=== PATIENT | male | born 1955 | race Caucasian/White ===

== ENCOUNTER 2021-04-23 00:49 | Day surgery (SDC) | payer BC, SELFPAY ==
[2021-04-07 14:12] VITALS: BMI 36.3
--- NOTE | 2021-04-22 09:45 | P.PNAN_ITS ---
Anes - Initial Pre Proc Eval Procedure: Operation Date: 04/23/21 09:15 Proposed Procedures p Screening Colonoscopy - Raymond Nation MD Date/Time: 04/22/21 09:45 Surgeon: Raymond Nation MD Pre Op Diagnosis: family hx of colon cancer Patient Data Age: 66 Gender: M Height: 1.8 m Weight: 118 kg Allergies Allergy/AdvReac Type Severity Reaction Status Date / Time Penicillins Allergy Mild Rash Verified 04/23/21 08:16 levetiracetam [From [facility]] Allergy Itching Verified 04/23/21 08:16 Home Medications Medication Instructions Recorded Confirmed Type atorvastatin 40 mg PO DAILY 04/07/21 04/07/21 History diltiazem HCl 360 mg PO DAILY 04/07/21 04/07/21 History lisinopril 40 mg PO DAILY 04/07/21 04/07/21 History sotalol 120 mg PO BID 04/07/21 04/07/21 History spironolactone 25 mg PO DAILY 04/07/21 04/07/21 History topiramate 100 mg PO BID 04/07/21 04/07/21 History warfarin 10 mg PO 5XW 04/07/21 04/07/21 History warfarin 12.5 mg PO 2XW 04/07/21 04/07/21 History Patient hx anesthesia problems: none Family hx anesthesia problems: none Results Review: All pre-operative results and documents have been reviewed as part of the pre-operative evaluation. 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 Surgical History Surgical History History of total knee replacement Social History Social History Smoking packs per day: 0.5 Smoking cigarettes per day: 10.0 Years smoked: 15 Smoking pack-years: 7.50 Smoking status: Former smoker Tobacco type: cigarettes Alcohol intake: former Substance use: current Substance use type: marijuana Other substance usage details: daily Living arrangements: with family Spiritual care concerns: No Anes - Eval Final PreProcedure Day of Procedure 04/22/21 09:45 Patient weight: obese Heart: regular rate and rhythm Lungs: clear to auscultation and normal air movement Airway: Mallampati scale class II Neurological: alert and oriented Last oral intake: >/= 8 hours ASA classification: III Emergent: no Anesthetic plan: proceed Anesthesia type and monitoring: general GIVS and standard monitoring Results Review: All pre-operative results and documents have been reviewed as part of the pre-operative evaluation. Informed Consent: The patient's anesthetic plan and its attendant risks and benefits were discussed with the patient/family/POA. Questions were solicited and answers provided to the satisfaction of the patient/family/POA.
[2021-04-23 08:18] VITALS: BP 133/74; PULSE 76; RESP 20; TEMP 36.3; O2SAT 99
--- NOTE | 2021-04-23 08:26 | PM.HPGS ---
History of Present Illness History of Present Illness Consent: Risks, benefits, and alternatives have been discussed and questions answered. Patient agrees to proceed with procedure. Chief complaint: family hx of colon cancer Narrative: Cesar Martin is a 66 year old male Referred for colon cancer screening. 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 Surgical History Surgical History History of total knee replacement Social History Social History Smoking packs per day: 0.5 Smoking cigarettes per day: 10.0 Years smoked: 15 Smoking pack-years: 7.50 Smoking status: Former smoker Tobacco type: cigarettes Alcohol intake: former Substance use: current Substance use type: marijuana Other substance usage details: daily Living arrangements: with family Spiritual care concerns: No Meds Home Medications and Allergies Home Medications Medication Instructions Recorded Confirmed Type atorvastatin 40 mg PO DAILY 04/07/21 04/07/21 History diltiazem HCl 360 mg PO DAILY 04/07/21 04/07/21 History lisinopril 40 mg PO DAILY 04/07/21 04/07/21 History sotalol 120 mg PO BID 04/07/21 04/07/21 History spironolactone 25 mg PO DAILY 04/07/21 04/07/21 History topiramate 100 mg PO BID 04/07/21 04/07/21 History warfarin 10 mg PO 5XW 04/07/21 04/07/21 History warfarin 12.5 mg PO 2XW 04/07/21 04/07/21 History Allergies Allergy/AdvReac Type Severity Reaction Status Date / Time Penicillins Allergy Mild Rash Verified 04/23/21 08:16 levetiracetam [From [facility]] Allergy Itching Verified 04/23/21 08:16 Vital Signs Vital Signs - 24 hr 04/23/21 08:18 Temperature 36.3 C L Pulse Rate 76 Respiratory Rate 20 Blood Pressure 133/74 Pulse Oximetry 99 Exam Resp: Auscultation: clear to auscultation bilaterally Cardio: Rate: regular rate Rhythm: regular rhythm GI: GI Palp: Yes Soft to palpation and No Tenderness to palpation present (GI) Assessment and Plan Assessment and plan (1) Colon cancer screening: Code(s): Z12.11 - Encounter for screening for malignant neoplasm of colon Status: Acute Assessment and Plan: Colonoscopy with possible biopsy or polypectomy or cautery or injection of substances.
[2021-04-23] MEDS: LACTATED RINGERS 1,000 ML 150 ML IV CONT (08:34)
[2021-04-23 09:14] VITALS: BP 128/80; PULSE 75; RESP 19; O2SAT 98
[2021-04-23 09:24] VITALS: BP 128/83; PULSE 75; RESP 20; O2SAT 99
[2021-04-23 09:34] VITALS: BP 125/90; PULSE 75; RESP 20; O2SAT 100
== END 2021-04-23 09:42 | disposition home or self-care (01) ==
PROVIDERS: PCP Internal Medicine; Visit Provider Internal Medicine Gastroenterology
PROC: 0DJD8ZZ Inspection of Lower Intestinal Tract, Via Natural or Artificial Opening Endoscopic (ICD-10-PCS; CPT 45378; principal; 2021-04-23 09:15)
DX: Z12.11 Encounter for screening for malignant neoplasm of colon (principal); K57.30 Diverticulosis of large intestine without perforation or abscess without bleeding; Z86.010 Personal history of colon polyps; Z80.0 Family history of malignant neoplasm of digestive organs; I48.91 Unspecified atrial fibrillation; I10 Essential (primary) hypertension; E78.5 Hyperlipidemia, unspecified; G47.33 Obstructive sleep apnea (adult) (pediatric); Z86.19 Personal history of other infectious and parasitic diseases; Z95.0 Presence of cardiac pacemaker; Z87.891 Personal history of nicotine dependence; F12.90 Cannabis use, unspecified, uncomplicated; Z79.01 Long term (current) use of anticoagulants; E66.9 Obesity, unspecified; Z68.34 Body mass index [BMI] 34.0-34.9, adult
CPT/HCPCS: 45378; J2704; J7120

== ENCOUNTER 2024-05-29 11:45 | Observation (INO) | payer MEDICARE, SELFPAY ==
[2024-05-29] VITALS (15 sets, daily range): BP systolic 125–176; BP diastolic 76–102; PULSE 74–102; RESP 15–21; TEMP 36.6–36.8; O2SAT 98–100; BMI 34.5
--- NOTE | ~2024-05-29 | NM_ITS ---
EXAMINATION: NM rosy stress w perfusion DATE: 05/30/2024 12:26 INDICATION: Chest pain TECHNIQUE: Rest images were obtained following intravenous administration of 10.67 mCi Tc99m tetrofos min (Myoview). The patient was infused intravenously with Lexiscan (Regadenoson). Then, 32.4 mCi Tc99 m tetrofosmin (Myoview) was administered intravenously, and stress images were obtained. Data was rec onstructed into short axis and horizontal and vertical long axis SPECT images. Gated SPECT images wer e also obtained. COMPARISON: None. FINDINGS: There is no definite reversible or fixed perfusion abnormality to suggest ischemia or infar ction. There is normal left ventricular chamber size, wall motion and ejection fraction. Left ventr icular ejection fraction measures >70%. IMPRESSION: 1. Normal myocardial perfusion at rest and during stress. 2. Left ventricular ejection fraction measuring >70%. Reviewed, dictated and finalized at location A. S SALES REPRESENTATIVE
--- NOTE | ~2024-05-29 | XR_ITS ---
XR chest 2V Ordering provider: Antione Hodge History: 69 years Male with . chest pain . Comparison: None. FINDINGS: MEDIASTINUM: The cardiac silhouette is not enlarged. Left bipolar pacemaker. LUNGS: No infiltrates, effusions or pneumothorax. Underlying emphysematous changes. OTHER: No free air under the diaphragm. IMPRESSION: No acute cardiopulmonary pathology. Reviewed, dictated and finalized at location A. SHAVER HELPER
--- NOTE | 2024-05-29 11:46 | ECG_ITS ---
Test Date: 2024-05-29 11:51:27 Measurements Intervals [place] Rate: 75 P: 48 MI: 213 QRS: 28 QRSD: 91 T: 33 QT: 393 QTc: 440 Interpretive Statements ELECTRONIC ATRIAL PACEMAKER INCOMPLETE RIGHT BUNDLE BRANCH BLOCK CONSIDER ANTERIOR INFARCT, AGE INDETERMINATE NONSPECIFIC ST & T-WAVE ABNORMALITY- ANTEROLAT/INF LEADS BASELINE ARTIFACT- I, III, AVR, AVL, AVF, V1-V6 ABNORMAL ECG No previous ECG available for comparison Electronically Signed On 05-29-2024 15:26:48 [facility] [employer] [employer] by Landry Robbins D.O.
[2024-05-29 12:12] LABS: Basophils Absolute Auto 0.1 K/mm3 (0.0-0.1); Basophils Percent Auto 1.2 % (0.2-1.2); Eosinophils Absolute Auto 0.1 K/mm3 (0-0.3); Eosinophils Percent Auto 1.8 % (0-4.4); Hematocrit 48.4 % (42.0-52.0); Immature Granulocyte Absolute 0.04 K/mm3 (0.00-0.031); Immature Granulocyte Percent A 0.6 % (0-0.5); Lymphocytes Absolute Auto 1.39 K/mm3 (0.9-3.2); Lymphocytes Percent Auto 21.3 % (18.3-44.2); Mean Corpuscular HGB Conc 33.1 g/dl (32-36); Mean Corpuscular Hemoglobin 33.3 pg (26-34); Mean Corpuscular Volume 100.8 fl (80-100); Mean Platelet Volume 9.4 fl (7.4-10.4); Monocytes Absolute Auto 0.7 K/mm3 (0.1-0.6); Monocytes Percent Auto 11.2 % (2.6-8.5); Neutrophils Absolute Auto 4.2 K/mm3 (1.3-6.7); Neutrophils Percent Auto 63.9 % (45.5-73.1); Platelet Count Result 186 k/mm3 (150-375); Red Cell Distribution Width 13.6 % (11.5-14.5); White Blood Count 6.5 K/mm3 (4.5-10.0)
[2024-05-29 12:25] LABS: Alanine Aminotransferase 19 U/L (6-50); Albumin Level 4.8 g/dL (3.5-5.1); Alkaline Phosphatase 64 U/L (38-126); Anion Gap 8 mmol/L (4-12); Aspartate Amino Transferase 26 U/L (17-59); Bilirubin,Total 0.8 mg/dL (0.2-1.3); Blood Urea Nitrogen 17 mg/dL (9-20); Calcium 9.9 mg/dL (8.4-10.2); Carbon Dioxide 26 mmol/L (22-30); Chloride 104 mmol/L (98-107); Estimated CRCL calculation 90 ml/min; Estimated Glomerular Filt Rate > 60; Glucose 101 mg/dL (65-110); Lipase 47 U/L (23-300); Sodium 138 mmol/L (137-145)
[2024-05-29 12:31] LABS: INR 1.2; Prothrombin Time 15.4 Seconds (11.1-14.7)
[2024-05-29 12:32] LABS: Partial Thromboplastin Time 26.8 Seconds (22.3-36.8)
[2024-05-29 12:36] LABS: Troponin I < 0.012 ng/mL (0.000-0.034)
--- NOTE | 2024-05-29 13:27 | ED.CHESTPAIN ---
HPI - Chest Pain General Chief Complaint: Chest Pain <CHRISS Miner Last Filed: 05/29/24 13:38> Stated Complaint: chest pain <CHRISS Miner Last Filed: 05/29/24 13:38> Time Seen by Provider: 05/29/24 13:27 <CHRISS Miner Last Filed: 05/29/24 13:38> Focused HPI: Patient is a 69 y/o male, with pacemaker, AFIB on eliquis, who presents to the ED with c/o back and chest pain. Patient reports the back pain has been ongoing for the past 2 days but began radiating around into his L sided chest today. Denies any recent strenuous activity, heavy lifting. Reports pain is worse with movement, taking deep breaths. Reports feeling mild short of breath with exertion. Denies significant sob at rest. Denies cough/cold sx's, fevers. Lap Maker is Dr. Parrish. GENERAL: Well-appearing, obese with BMI of 35.4, and in no acute distress. HEAD: Normocephalic, atraumatic. CHEST: Clear to auscultation. ?No respiratory distress. Occasional exp wheezing heard in LL lung zone. HEART: Regular rate and rhythm.? MSK: Mild TTP along mid thoracic region left sided paraspinal musculature, no significant tenderness over L scapular region or L anterior chest wall. NEURO: ?Alert and oriented x3. Patient screened in triage and initial orders placed.? ?Additional care and disposition to be based upon?diagnostic testing and treatment. <CHRISS Miner Last Filed: 05/29/24 13:38> Source: patient <CHRISS Miner Last Filed: 05/29/24 13:38> Mode of arrival: ambulatory <CHRISS Miner Last Filed: 05/29/24 13:38> Limitations: no limitations <CHRISS Miner Last Filed: 05/29/24 13:38> History of Present Illness HPI narrative: HPI as per MSE. Back pain radiating around to chest for two dyas but getting worse. Pt has pacemeker history due to a fib. Pt denies SOB. <Antione Hodge III, DO - Last Filed: 05/29/24 18:36> Related Data Home Medications: Home Medications Medication Instructions Recorded Confirmed atorvastatin 20 mg tablet 40 mg PO DAILY 04/07/21 05/29/24 diltiazem HCl 360 mg 360 mg PO HS 04/07/21 05/29/24 capsule,extended release 24 hr spironolactone 25 mg tablet 25 mg PO DAILY 04/07/21 05/29/24 apixaban 5 mg tablet (Eliquis) 5 mg PO BID 10/21/23 05/29/24 ascorbate calcium (vitamin C) 500 500 mg PO BID 10/21/23 05/29/24 mg tablet cholecalciferol (vitamin D3) 25 25 mcg PO DAILY 10/21/23 05/29/24 mcg (1,000 unit) capsule dofetilide 500 mcg capsule 500 mcg PO DAILY 10/21/23 05/29/24 enzalutamide 80 mg tablet (Xtandi) 80 mg PO DAILY 10/21/23 05/29/24 garlic 300 mg capsule 300 mg PO BID 10/21/23 10/21/23 losartan 50 mg tablet 25 mg PO DAILY 10/21/23 05/29/24 magnesium oxide 400 mg (241.3 mg 400 mg PO DAILY 10/21/23 05/29/24 magnesium) tablet multivitamin 1 tablet PO DAILY 10/21/23 10/21/23 <Winifred Cabrera PA-C - Last Filed: 05/29/24 13:38> Allergies/Adverse Reactions: Allergies Allergy/AdvReac Type Severity Reaction Status Date / Time Penicillins Allergy Mild Rash Verified 10/21/23 14:34 levetiracetam [From [facility]] Allergy Itching Verified 10/21/23 14:34 <Winifred Cabrera PA-C - Last Filed: 05/29/24 13:38> Review of Systems Review of Systems: All systems reviewed & are unremarkable except as noted in HPI and below <Antione Hodge III, DO - Last Filed: 05/29/24 18:36> PMFSH Past Medical History Medical History: Medical History (Updated 11/25/24 @ 18:01 by Landry Robbins DO) Atrial fibrillation Cavernoma history of spontaneous ICH in 10/2013 Chest pain Chronic anticoagulation Hepatitis C Hyperlipidemia Hypertension 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 Obstructive sleep apnea Prostate cancer Seizure related to cerebral hemorrhage in 2013 Sick sinus syndrome status post pacemaker implantation <Winifred Cabrera PA-C - Last Filed: 05/29/24 13:38> Surgical History Surgical History: Surgical History (Updated 05/29/24 @ 16:53 by Marylou Riojas PA-C) History of arthroplasty of left hip (09/2018) History of arthroscopy of both knees History of bilateral cataract extraction (2016) History of cardiac radiofrequency ablation (08/2011) for atrial flutter History of loop recorder explantation 02/2014 History of permanent cardiac pacemaker placement (02/2014) [employer] dual chamber pacemaker per Dr. Parrish History of tonsillectomy <Winifred Cabrera PA-C - Last Filed: 05/29/24 13:38> Family History Family History: Family History (Updated 05/29/24 @ 16:47 by Marylou Rioajs PA-C) Other Breast cancer Congestive heart failure Diabetes mellitus Hypertension <Winifred Cabrera PA-C - Last Filed: 05/29/24 13:38> Social History Social History: Social History (Updated 05/29/24 @ 16:51 by Marylou Riojas PA-C) Social History: Surrogate medical decision maker: Nisha Aminalexa, spouse. Code status: Full code. Smoking packs per day: 0.5 Smoking cigarettes per day: 10.0 Years smoked: 20 Smoking pack-years: 10.00 Smoking status: Former smoker Tobacco type: cigarettes Alcohol intake: former Substance use: current Substance use type: marijuana Other substance usage details: daily Do You Feel Safe in your Home?: Yes Lack of Transportation: No Lack of Food: Never True Current Housing: I Have Housing Concerned About Future Housing: No Difficulty Paying Gas/Electric Bills: No Difficulty Paying for Meds: No Currently Unemployed: No Education: Bachelor's Degree Difficulty w/ Childcare or Family Care: No Living arrangements: with family Occupation/Education: retired Spiritual care concerns: No <Winifred Cabrera PA-C - Last Filed: 05/29/24 13:38> Exam Const: General: healthy appearing and no acute distress <Antione Dilshad Hodge III, DO - Last Filed: 05/29/24 18:36> Nutritional Appearance: well nourished <Antione Dilshad Hodge III, DO - Last Filed: 05/29/24 18:36> Orientation/consciousness: patient oriented x3 <Antione Dilshad Hodge III, DO - Last Filed: 05/29/24 18:36> Limitations: no limitations <Antione Dilshad Hodge III, DO - Last Filed: 05/29/24 18:36> Neck: Neck: normal visual inspection <Antione Dilshad Hodge III, DO - Last Filed: 05/29/24 18:36> Chest: Chest palpation & inspection: normal inspection of the chest and Pacemaker present <Antione Dilshad Hodge III, DO - Last Filed: 05/29/24 18:36> Resp: Effort & Inspection: normal respiratory effort <Antione Dilshad Hodge III, DO - Last Filed: 05/29/24 18:36> Auscultation: clear to auscultation bilaterally <Antione Dilshad Hodge III, DO - Last Filed: 05/29/24 18:36> Cardio: Rate: regular rate <Antione Dilshad Hodge III, DO - Last Filed: 05/29/24 18:36> Rhythm: regular rhythm <Antione Dilshad Hodge III, DO - Last Filed: 05/29/24 18:36> GI: GI Palp: Yes Soft to palpation and No Tenderness to palpation present (GI) <Antione Dilshad Hodge III, DO - Last Filed: 05/29/24 18:36> Auscultation: normal bowel sounds <Antione Dilshad Hodge III, DO - Last Filed: 05/29/24 18:36> Back/Spine/Pelvis: Other: tender to palpation with some spasm left paraspinous muscles <Antione Dilshad Hodge III, DO - Last Filed: 05/29/24 18:36> Skin: General skin exam: normal color <Antione Dilshad Hodge III, DO - Last Filed: 05/29/24 18:36> Wounds: no wounds <Antione Dilshad Hodge III, DO - Last Filed: 05/29/24 18:36> Neuro: General: patient oriented x3, moves all extremities, no focal motor deficits and CN's II-XI intact bilaterally <Antione Dilshad Hodge III, DO - Last Filed: 05/29/24 18:36> Cranial nerves: Yes Nystagmus not present <Antione Dilshad Hodge III, DO - Last Filed: 05/29/24 18:36> Speech: normal speech <Antione Dilshad Hodge III, DO - Last Filed: 05/29/24 18:36> Extrem: General: normal to inspection and no clubbing, cyanosis or edema <Antione Dilshad Hodge III, DO - Last Filed: 05/29/24 18:36> Psych: Mental Status: mental status grossly normal <Antione Dilshad Hodge III, DO - Last Filed: 05/29/24 18:36> Affect: normal affect <Antione Dilshad Hodge III, DO - Last Filed: 05/29/24 18:36> Attitude: cooperative <Antione Dilshad Hodge III, DO - Last Filed: 05/29/24 18:36> Course Vital Signs Vital signs: Vital Signs Temperature 98.2 F 05/29/24 11:49 Pulse Rate 102 H 05/29/24 11:49 Respiratory Rate 16 05/29/24 11:49 Blood Pressure 176/102 H 05/29/24 11:49 Pulse Oximetry 98 05/29/24 11:49 Temperature 97.8 F 05/29/24 18:27 Pulse Rate 74 05/29/24 18:27 Respiratory Rate 20 05/29/24 18:27 Blood Pressure 154/76 H 05/29/24 18:27 Pulse Oximetry 98 05/29/24 18:27 Oxygen Delivery Room Air 05/29/24 15:20 <Winifred Cabrera PA-C - Last Filed: 05/29/24 13:38> Vital Signs Temperature 98.2 F 05/29/24 11:49 Pulse Rate 102 H 05/29/24 11:49 Respiratory Rate 16 05/29/24 11:49 Blood Pressure 176/102 H 05/29/24 11:49 Pulse Oximetry 98 05/29/24 11:49 Temperature 97.8 F 05/29/24 18:27 Pulse Rate 74 05/29/24 18:27 Respiratory Rate 20 05/29/24 18:27 Blood Pressure 154/76 H 05/29/24 18:27 Pulse Oximetry 98 05/29/24 18:27 Oxygen Delivery Room Air 05/29/24 15:20 <Antione Hodge III, DO - Last Filed: 05/29/24 18:36> MDM - Chest Pain MDM Narrative Medical decision making narrative: MSE by EMA in triage. <Winifred Cabrera PA-C - Last Filed: 05/29/24 13:38> MSE by EMA in triage. EKG shows t wave changes v3-v4 on 1st ekg and seems to be in v5- v6 on 2nd ekg. discussed with Marylou Alexander will accept pt. discussed with Dr Robbins will consult. <Antione Hodge III, DO - Last Filed: 05/29/24 18:36> Lab Data Result diagrams: 05/29/24 12:03 05/29/24 12:03 <Winifred Cabrera PA-C - Last Filed: 05/29/24 13:38> Labs: Lab Results 05/29/24 05/29/24 Range/Units 12:03 15:33 WBC 6.5 (4.5-10.0) K/mm3 RBC 4.80 (4.6-6.20) M/mm3 Hgb 16.0 (14.0-18.0) g/dL Hct 48.4 (42.0-52.0) % MCV 100.8 H (80-100) fl MCH 33.3 (26-34) pg MCHC 33.1 (32-36) g/dl RDW 13.6 (11.5-14.5) % Plt Count 186 (150-375) k/mm3 MPV 9.4 (7.4-10.4) fl Immature Gran % (Auto) 0.6 H (0-0.5) % Neut % (Auto) 63.9 (45.5-73.1) % Lymph % (Auto) 21.3 (18.3-44.2) % [place] % (Auto) 11.2 H (2.6-8.5) % Eos % (Auto) 1.8 (0-4.4) % Baso % (Auto) 1.2 (0.2-1.2) % Lymph # (Auto) 1.39 (0.9-3.2) K/mm3 [place] # (Auto) 0.7 H (0.1-0.6) K/mm3 Eos # (Auto) 0.1 (0-0.3) K/mm3 Baso # (Auto) 0.1 (0.0-0.1) K/mm3 Abs Immat Gran (auto) 0.04 H (0.00-0.031) K/mm3 Absolute Neuts (auto) 4.2 (1.3-6.7) K/mm3 Absolute Nucleated RBC 0.000 (0.0-0.012) K/mm3 Nucleated RBC % 0.0 (0.0-0.2) % PT 15.4 H (11.1-14.7) Seconds INR 1.2 APTT 26.8 (22.3-36.8) Seconds D-Dimer 0.39 (<0.48) ug/mL Sodium 138 (137-145) mmol/L Potassium 4.0 (3.4-5.0) mmol/L Chloride 104 (98-107) mmol/L Carbon Dioxide 26 (22-30) mmol/L Anion Gap 8 (4-12) mmol/L BUN 17 (9-20) mg/dL Creatinine 0.90 (0.7-1.3) mg/dL Estim Creat Clear Calc 90 ml/min Estimated GFR > 60 (59 - ) Glucose 101 (65-110) mg/dL Calcium 9.9 (8.4-10.2) mg/dL Total Bilirubin 0.8 (0.2-1.3) mg/dL AST 26 (17-59) U/L ALT 19 (6-50) U/L Alkaline Phosphatase 64 (38-126) U/L Troponin I < 0.012 0.015 D (0.000-0.034) ng/mL Total Protein 9.0 H (6.3-8.2) g/dL Albumin 4.8 (3.5-5.1) g/dL Lipase 47 (23-300) U/L <Winifred Cabrera PA-C - Last Filed: 05/29/24 13:38> Lab Results 05/29/24 05/29/24 Range/Units 12:03 15:33 WBC 6.5 (4.5-10.0) K/mm3 RBC 4.80 (4.6-6.20) M/mm3 Hgb 16.0 (14.0-18.0) g/dL Hct 48.4 (42.0-52.0) % MCV 100.8 H (80-100) fl MCH 33.3 (26-34) pg MCHC 33.1 (32-36) g/dl RDW 13.6 (11.5-14.5) % Plt Count 186 (150-375) k/mm3 MPV 9.4 (7.4-10.4) fl Immature Gran % (Auto) 0.6 H (0-0.5) % Neut % (Auto) 63.9 (45.5-73.1) % Lymph % (Auto) 21.3 (18.3-44.2) % [place] % (Auto) 11.2 H (2.6-8.5) % Eos % (Auto) 1.8 (0-4.4) % Baso % (Auto) 1.2 (0.2-1.2) % Lymph # (Auto) 1.39 (0.9-3.2) K/mm3 [place] # (Auto) 0.7 H (0.1-0.6) K/mm3 Eos # (Auto) 0.1 (0-0.3) K/mm3 Baso # (Auto) 0.1 (0.0-0.1) K/mm3 Abs Immat Gran (auto) 0.04 H (0.00-0.031) K/mm3 Absolute Neuts (auto) 4.2 (1.3-6.7) K/mm3 Absolute Nucleated RBC 0.000 (0.0-0.012) K/mm3 Nucleated RBC % 0.0 (0.0-0.2) % PT 15.4 H (11.1-14.7) Seconds INR 1.2 APTT 26.8 (22.3-36.8) Seconds D-Dimer 0.39 (<0.48) ug/mL Sodium 138 (137-145) mmol/L Potassium 4.0 (3.4-5.0) mmol/L Chloride 104 (98-107) mmol/L Carbon Dioxide 26 (22-30) mmol/L Anion Gap 8 (4-12) mmol/L BUN 17 (9-20) mg/dL Creatinine 0.90 (0.7-1.3) mg/dL Estim Creat Clear Calc 90 ml/min Estimated GFR > 60 (59 - ) Glucose 101 (65-110) mg/dL Calcium 9.9 (8.4-10.2) mg/dL Total Bilirubin 0.8 (0.2-1.3) mg/dL AST 26 (17-59) U/L ALT 19 (6-50) U/L Alkaline Phosphatase 64 (38-126) U/L Troponin I < 0.012 0.015 D (0.000-0.034) ng/mL Total Protein 9.0 H (6.3-8.2) g/dL Albumin 4.8 (3.5-5.1) g/dL Lipase 47 (23-300) U/L <Antione Hodge III, DO - Last Filed: 05/29/24 18:36> Discharge Plan Discharge Clinical Impression: Chest pain <Winifred Cabrera PA-C - Last Filed: 05/29/24 13:38> Patient Disposition: Still a Patient <CHRISS Miner Last Filed: 05/29/24 13:38> Condition: Stable <Winifred Cabrera PA-C - Last Filed: 05/29/24 13:38>
[2024-05-29] MEDS: ACETAMINOPHEN 500 MG TABLET 1000 MG PO (13:51)
[2024-05-29] MEDS: CYCLOBENZAPRINE HCL 5 MG TABLET PO (13:52)
[2024-05-29 15:06] LABS: D Dimer 0.39 ug/mL (<0.48)
--- NOTE | 2024-05-29 15:17 | ECG_ITS ---
Test Date: 2024-05-29 15:21:44 Measurements Intervals [place] Rate: 75 P: 228 CO: 236 QRS: 26 QRSD: 101 T: -32 QT: 400 QTc: 448 Interpretive Statements ELECTRONIC ATRIAL PACEMAKER MODERATE T-WAVE ABNORMALITY, CONSIDER ANT/INF ISCHEMIA ABNORMAL ECG Compared to ECG 05/29/2024 11:51:27 Possible ischemia now present Electronically Signed On 05-29-2024 15:27:24 APPRENTICE ARCHITECT by Landry Robbins D.O.
[2024-05-29 16:06] LABS: Troponin I 0.015 ng/mL (0.000-0.034)
--- NOTE | 2024-05-29 16:35 | PM.IMHP ---
H&P: HPI History of Present Illness Date/Time: 05/29/24 16:35 Chief Complaint: Back and chest pain. 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 The patient provides the following history. He has chronic low back pain however over the last 3 days he has been experiencing pain in the left mid back just below the scapula. It feels like a severe spasm just like his low back pain. It occasionally radiates around the side into the left anterior chest. The pain is worse with movement and palpation. He denies syncope, near syncope, exertional chest pain (although he does not exert himself much due to his chronic back pain), palpitations, significant shortness of breath, nausea, vomiting, and sweats. He has not done any recent heavy lifting or strenuous activity. No falls. In the ED: Vital signs were stable on arrival. CMP and CBC were pretty unremarkable. Initial troponin was less than 0.012. Chest x-ray showed no acute cardiopulmonary pathology. EKG showed electronic atrial pacemaker with moderate T-wave abnormalities, consider anterior/inferior ischemia. He was given aspirin 324 mg, morphine 4 mg IV, and was started on transdermal nitroglycerin. He is being admitted in this setting for close monitoring and Cardiology consultation. Valium seemed to help his pain the most. Review of Systems Review of Systems: 12 systems were reviewed and are negative except for as per HPI. [facility] Past Medical History Medical History (Updated 05/29/24 @ 21:54 by Marylou Riojas PA-C) Atrial fibrillation Cavernoma Chronic anticoagulation Hepatitis C Hyperlipidemia Hypertension Intracranial hemorrhage (10/2013) attributed to dabigatran use per patient report Obstructive sleep apnea Prostate cancer Seizure related to cerebral hemorrhage in 2013 Sick sinus syndrome status post pacemaker implantation Surgical History Surgical History (Updated 05/29/24 @ 16:53 by Marylou Riojas PA-C) History of arthroplasty of left hip (09/2018) History of arthroscopy of both knees History of bilateral cataract extraction (2016) History of cardiac radiofrequency ablation (08/2011) for atrial flutter History of loop recorder explantation 02/2014 History of permanent cardiac pacemaker placement (02/2014) [employer] dual chamber pacemaker per Dr. Parrish History of tonsillectomy Family History Family History Other Breast cancer Congestive heart failure Diabetes mellitus Hypertension Social History Social History (Updated 05/29/24 @ 16:51 by Marylou Riojas PA-C) Social History: Surrogate medical decision maker: Nisha Paulinojoycelyn, spouse. Code status: Full code. Smoking packs per day: 0.5 Smoking cigarettes per day: 10.0 Years smoked: 20 Smoking pack-years: 10.00 Smoking status: Former smoker Tobacco type: cigarettes Alcohol intake: current Drinks per week: 2 Substance use: current Substance use type: marijuana Other substance usage details: Gummies - daily - 50mg Last use: 05/29/2024 prior to admission Do You Feel Safe in your Home?: Yes Lack of Transportation: No Lack of Food: Never True Current Housing: I Have Housing Concerned About Future Housing: No Difficulty Paying Gas/Electric Bills: No Difficulty Paying for Meds: No Currently Unemployed: No Education: High School Diploma/GED Difficulty w/ Childcare or Family Care: No Living arrangements: with family Occupation/Education: retired Spiritual care concerns: No Meds Home Medications and Allergies Home Medications Medication Instructions Recorded Confirmed Type atorvastatin 20 mg tablet 40 mg PO DAILY 04/07/21 05/29/24 History diltiazem HCl 360 mg 360 mg PO HS 04/07/21 05/29/24 History capsule,extended release 24 hr spironolactone 25 mg tablet 25 mg PO DAILY 04/07/21 05/29/24 History apixaban 5 mg tablet (Eliquis) 5 mg PO BID 10/21/23 05/29/24 History ascorbate calcium (vitamin C) 500 500 mg PO BID 10/21/23 05/29/24 History mg tablet cholecalciferol (vitamin D3) 25 25 mcg PO DAILY 10/21/23 05/29/24 History mcg (1,000 unit) capsule dofetilide 500 mcg capsule 500 mcg PO DAILY 10/21/23 05/29/24 History enzalutamide 80 mg tablet (Xtandi) 80 mg PO DAILY 10/21/23 05/29/24 History garlic 300 mg capsule 300 mg PO BID 10/21/23 05/29/24 History losartan 50 mg tablet 25 mg PO DAILY 10/21/23 05/29/24 History magnesium oxide 400 mg (241.3 mg 400 mg PO DAILY 10/21/23 05/29/24 History magnesium) tablet multivitamin 1 tablet PO DAILY 10/21/23 05/29/24 History Allergies Allergy/AdvReac Type Severity Reaction Status Date / Time Penicillins Allergy Mild Rash Verified 10/21/23 14:34 levetiracetam [From [facility]] Allergy Itching Verified 10/21/23 14:34 Vital Signs Vital Signs - 24 hr 05/29/24 11:49 05/29/24 15:20 05/29/24 15:20 Temperature 98.2 F Pulse Rate 102 H 76 Respiratory Rate 16 17 Blood Pressure 176/102 H 170/94 H Pulse Oximetry 98 100 98 Oxygen Delivery Room Air Exam Narrative: General: Well-developed, nontoxic-appearing male in the semi-Webster position in bed. Weight: 109.3 kg. BMI: 34.6. HEENT: PERRL, EOMI. Sclera anicteric. Oral mucosa moist. Oropharynx clear. Neck: Supple. Respiratory: Lungs are clear to auscultation bilaterally. Cardiovascular: Regular rate and rhythm with S1-S2. Chest: Reproducible tenderness to palpation over the left anterior chest wall. Gastrointestinal: Abdomen is soft, nontender, and nondistended with positive bowel sounds. Skin: Warm and dry. Extremities: No cyanosis, clubbing, or edema. Radial and pedal pulses intact. Musculoskeletal: He is tender to palpation under the left scapula. Neurological: Alert. Cranial nerves 2-12 are grossly intact. No gross focal deficits to casual conversation. Psychiatric: Pleasant and cooperative with normal mood and affect. Judgment and insight intact. H&P: Results Labs Labs: Short CBC 05/29/24 Range/Units 12:03 WBC 6.5 (4.5-10.0) K/mm3 Hgb 16.0 (14.0-18.0) g/dL Hct 48.4 (42.0-52.0) % Plt Count 186 (150-375) k/mm3 [facility] 05/29/24 12:03 Sodium 138 Potassium 4.0 Chloride 104 Carbon Dioxide 26 BUN 17 Creatinine 0.90 Glucose 101 Calcium 9.9 Cardiac Enzymes 05/29/24 05/29/24 Range/Units 12:03 15:33 Troponin I < 0.012 0.015 D (0.000-0.034) ng/mL Liver Function 05/29/24 Range/Units 12:03 Total Bilirubin 0.8 (0.2-1.3) mg/dL AST 26 (17-59) U/L ALT 19 (6-50) U/L Alkaline Phosphatase 64 (38-126) U/L Albumin 4.8 (3.5-5.1) g/dL Imaging Chest X-Ray 05/29/24 12:32 IMPRESSION: 1. No acute cardiopulmonary pathology. Assessment and Plan Assessment and plan (1) Chest pain: Code(s): R07.9 - Chest pain, unspecified Status: Acute (2) Atrial fibrillation: Code(s): I48.91 - Unspecified atrial fibrillation Status: Chronic (3) Chronic anticoagulation: Code(s): Z79.01 - detention (current) use of anticoagulants Status: Acute (4) Hypertension: Code(s): I10 - Essential (primary) hypertension Status: Acute (5) Hyperlipidemia: Code(s): E78.5 - Hyperlipidemia, unspecified Status: Acute (6) Prostate cancer: Code(s): C61 - Malignant neoplasm of prostate Status: Acute Plan The patient presented to the emergency department for evaluation of chest pain as detailed in HPI. Labs, imaging, EKG, and all reports were personally reviewed. This sounds like it is musculoskeletal in etiology. Initial troponin was normal and will be trended. EKG shows findings of possible ischemia in the anterior and inferior leads. He will be monitored closely in the IMU overnight given his risk factor. Cardiology was consulted by the ED physician and their recommendations are appreciated. He will be NPO after midnight for stress test tomorrow. Vital signs were reviewed and they are stable. His medications will be reviewed and resumed as appropriate. Findings and treatment plan were discussed with the patient. Questions were solicited and answered to satisfaction. The patient's medical management will be taken over by the hospitalist team in a.m. Quality VTE Prophylaxis VTE prophylaxis: pharmacologic ordered (on apixaban) The patient has been admitted under observation status. Hospitalist [facility] Advance Care Plan I have confirmed that the patient's Advanced Care Plan is present, code status is documented, or surrogate decision maker is listed in patient medical record.: Yes Medication Reconciliation I have utilized all available resources to obtain, update and review the patients current medications (includes all prescriptions, OTC, herbals, cannabis, and nutritional supplements).: Yes
[2024-05-29] MEDS: diazePAM INJ (*CRX) 10 MG/2 ML SYRINGE 5 MG IV PUSH (16:43)
[2024-05-29] MEDS: MORPHINE SULFATE (*CRX) 4 MG/ML INJ IV PUSH (16:43)
[2024-05-29] MEDS: ASPIRIN 81 MG CHEWABLE TABLET 324 MG PO (17:17)
--- NOTE | 2024-05-29 17:57 | PM.CNCAR ---
Assessment and Plan Assessment and plan (1) Chest pain: Code(s): R07.9 - Chest pain, unspecified Status: Acute Assessment and Plan: Probably musculoskeletal pain. First 2 sets of troponin are negative. EKG shows some T wave abnormality. Obtain lexiscan myoview stress test in AM. Obtain echo. (2) PAF (paroxysmal atrial fibrillation): Code(s): I48.0 - Paroxysmal atrial fibrillation Status: Acute Assessment and Plan: Atrial paced rhythm. On Dofetilide and Eliquis. (3) Hyperlipidemia: Code(s): E78.5 - Hyperlipidemia, unspecified Status: Acute Assessment and Plan: On Atorvastatin. (4) Hypertension: Code(s): I10 - Essential (primary) hypertension Status: Acute Assessment and Plan: Stable. (5) Pacemaker: Code(s): Z95.0 - Presence of cardiac pacemaker Status: Acute Assessment and Plan: [employer] pacemaker. He normally sees Dr. Parrish with [facility]. History of Present Illness History of Present Illness Consult date/time: 05/29/24 17:57 Reason For Visit: chest pain Narrative: 69 yr old man presents to ER with chest pain. He has a history of [employer] pacemaker, PAF, hypertension, dyslipidemia. His regular director of athletics is Dr. Parrish with [facility]. Report that 3 days ago he had left sided mid back pain and today it radiated to his left chest which prompted him to come in to ER. States that lying back improves his pain compared to sitting up and moving. He does have intermittent chronic back pain from muscle spasms . He is limited at walking 100 feet due to back pain then GAVIRIA. Denies orthopnea, PND, edema, dizziness, palpitations. Review of Systems Review of Systems: All systems reviewed & are unremarkable except as noted in HPI and below Constitutional: Constitutional: Reports as per HPI, Denies chills and Denies fever(s) Cardiovascular: Cardiovascular: Reports as per HPI, Reports chest pain and Denies irregular heart rhythm Respiratory: Respiratory: Reports as per HPI and Denies dyspnea Gastrointestinal: Gastrointestinal: Reports as per HPI and Denies abdominal pain Genitourinary: Genitourinary: Reports as per HPI and Denies dysuria Musculoskeletal: Musculoskeletal: Reports as per HPI and Reports back pain Neurologic: Reports as per HPI, Denies dizziness and Denies syncope [facility] Past Medical History Medical History (Updated 05/29/24 @ 18:01 by Landry Robbins DO) Atrial fibrillation Cavernoma history of spontaneous ICH in 10/2013 Chest pain Chronic anticoagulation Hepatitis C Hyperlipidemia Hypertension 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 Obstructive sleep apnea Prostate cancer Seizure related to cerebral hemorrhage in 2013 Sick sinus syndrome status post pacemaker implantation Surgical History Surgical History (Updated 05/29/24 @ 16:53 by Marylou Riojas PA-C) History of arthroplasty of left hip (09/2018) History of arthroscopy of both knees History of bilateral cataract extraction (2016) History of cardiac radiofrequency ablation (08/2011) for atrial flutter History of loop recorder explantation 02/2014 History of permanent cardiac pacemaker placement (02/2014) [employer] dual chamber pacemaker per Dr. Parrish History of tonsillectomy Family History Family History (Updated 05/29/24 @ 16:47 by Marylou Riojas PA-C) Other Breast cancer Congestive heart failure Diabetes mellitus Hypertension Social History Social History (Updated 05/29/24 @ 16:51 by Marylou Riojas PA-C) Social History: Surrogate medical decision maker: Nishara Martin, spouse. Code status: Full code. Smoking packs per day: 0.5 Smoking cigarettes per day: 10.0 Years smoked: 20 Smoking pack-years: 10.00 Smoking status: Former smoker Tobacco type: cigarettes Alcohol intake: former Substance use: current Substance use type: marijuana Other substance usage details: daily Do You Feel Safe in your Home?: Yes Lack of Transportation: No Lack of Food: Never True Current Housing: I Have Housing Concerned About Future Housing: No Difficulty Paying Gas/Electric Bills: No Difficulty Paying for Meds: No Currently Unemployed: No Education: Bachelor's Degree Difficulty w/ Childcare or Family Care: No Living arrangements: with family Occupation/Education: retired Spiritual care concerns: No Meds Home Medications and Allergies Home Medications Medication Instructions Recorded Confirmed Type atorvastatin 20 mg tablet 40 mg PO DAILY 04/07/21 05/29/24 History diltiazem HCl 360 mg 360 mg PO HS 04/07/21 05/29/24 History capsule,extended release 24 hr spironolactone 25 mg tablet 25 mg PO DAILY 04/07/21 05/29/24 History apixaban 5 mg tablet (Eliquis) 5 mg PO BID 10/21/23 05/29/24 History ascorbate calcium (vitamin C) 500 500 mg PO BID 10/21/23 05/29/24 History mg tablet cholecalciferol (vitamin D3) 25 25 mcg PO DAILY 10/21/23 05/29/24 History mcg (1,000 unit) capsule dofetilide 500 mcg capsule 500 mcg PO DAILY 10/21/23 05/29/24 History enzalutamide 80 mg tablet (Xtandi) 80 mg PO DAILY 10/21/23 05/29/24 History garlic 300 mg capsule 300 mg PO BID 10/21/23 10/21/23 History losartan 50 mg tablet 25 mg PO DAILY 10/21/23 05/29/24 History magnesium oxide 400 mg (241.3 mg 400 mg PO DAILY 10/21/23 05/29/24 History magnesium) tablet multivitamin 1 tablet PO DAILY 10/21/23 10/21/23 History prednisone 10 mg tablet 10 mg PO BID #20 tabs 10/25/23 Rx Allergies Allergy/AdvReac Type Severity Reaction Status Date / Time Penicillins Allergy Mild Rash Verified 10/21/23 14:34 levetiracetam [From [facility]] Allergy Itching Verified 10/21/23 14:34 Vital Signs Vital Signs - 24 hr 05/29/24 11:49 05/29/24 15:20 05/29/24 15:20 Temperature 98.2 F Pulse Rate 102 H 76 Respiratory Rate 16 17 Blood Pressure 176/102 H 170/94 H Pulse Oximetry 98 100 98 Oxygen Delivery Room Air 05/29/24 15:19 05/29/24 15:45 05/29/24 16:01 Temperature Pulse Rate 76 76 76 Respiratory Rate 21 H 20 17 Blood Pressure 170/94 H 125/89 Pulse Oximetry 98 98 99 Oxygen Delivery 05/29/24 16:31 05/29/24 16:45 05/29/24 17:29 Temperature Pulse Rate 76 75 76 Respiratory Rate 15 15 16 Blood Pressure 137/79 131/86 Pulse Oximetry 100 99 98 Oxygen Delivery Exam Const: General: cooperative, healthy appearing and comfortable Resp: Auscultation: clear to auscultation bilaterally, no crackles, no rales, no rhonchi and no wheezes Cardio: Rate: regular rate Rhythm: regular rhythm Heart sounds: no murmurs Peripheral pulses: dorsalis pedis present GI: GI Palp: No abdominal tenderness Neuro: General: oriented to person, oriented to place and oriented to time Extrem: Right lower extremity: no edema Left lower extremity: no edema Results Labs and Meds 05/29/24 12:03 05/29/24 12:03 Lab results: Cardiac Enzymes 05/29/24 05/29/24 Range/Units 12:03 15:33 AST 26 (17-59) U/L Troponin I < 0.012 0.015 D (0.000-0.034) ng/mL Coagulation 05/29/24 Range/Units 12:03 PT 15.4 H (11.1-14.7) Seconds APTT 26.8 (22.3-36.8) Seconds CBC 05/29/24 Range/Units 12:03 WBC 6.5 (4.5-10.0) K/mm3 RBC 4.80 (4.6-6.20) M/mm3 Hgb 16.0 (14.0-18.0) g/dL Hct 48.4 (42.0-52.0) % Plt Count 186 (150-375) k/mm3 Lymph # (Auto) 1.39 (0.9-3.2) K/mm3 [place] # (Auto) 0.7 H (0.1-0.6) K/mm3 Eos # (Auto) 0.1 (0-0.3) K/mm3 Baso # (Auto) 0.1 (0.0-0.1) K/mm3 Comprehensive Metabolic Panel 05/29/24 Range/Units 12:03 Sodium 138 (137-145) mmol/L Potassium 4.0 (3.4-5.0) mmol/L Chloride 104 (98-107) mmol/L Carbon Dioxide 26 (22-30) mmol/L BUN 17 (9-20) mg/dL Creatinine 0.90 (0.7-1.3) mg/dL Glucose 101 (65-110) mg/dL Calcium 9.9 (8.4-10.2) mg/dL AST 26 (17-59) U/L ALT 19 (6-50) U/L Alkaline Phosphatase 64 (38-126) U/L Total Protein 9.0 H (6.3-8.2) g/dL Albumin 4.8 (3.5-5.1) g/dL Patient Weight 05/29/24 23:59 Weight 115 kg
--- NOTE | 2024-05-29 18:16 | ADMGEN ---
This patient, Cesar Martin, was admitted to IMU Room 214-01. Patient arrived to the room at 1815. Patient/family oriented to hospital policies and general routines including ID bracelet, bed and alarms, visiting hours, pain management, procedures, bathroom and other care routines, personal items, smoking policy, room service/diet, and visiting hours. Information on how to activate the Rapid Response Team has been discussed. Patient/Family are encouraged to report perceived risks to care and to ask questions if they do not understand what they are told or what they should do.
[2024-05-29 18:57] LABS: Troponin I < 0.012 ng/mL (0.000-0.034)
[2024-05-29] MEDS: NITROGLYCERIN OINTMENT 1 INCH DOSE TRANSDERM (19:04)
[2024-05-29] MEDS: diazePAM (*CRX) 5 MG TABLET PO (20:59)
[2024-05-29] MEDS: dilTIAZem HCL CD 180 MG CAP.24HR 360 MG PO (20:59)
[2024-05-29] MEDS: APIXABAN 5 MG TABLET PO (21:00)
[2024-05-29] MEDS: LOSARTAN POTASSIUM 25 MG TABLET PO (21:25)
[2024-05-29] MEDS: MAGNESIUM OXIDE 400 MG TABLET PO (21:25)
[2024-05-29] MEDS: WATER FOR IRRIGATION, STERILE 1,000 ML BOTTLE 1000 ML (21:30)
[2024-05-29 23:17] LABS: Troponin I < 0.012 ng/mL (0.000-0.034)
[2024-05-30] VITALS (14 sets, daily range): BP systolic 135–147; BP diastolic 85–92; PULSE 75–137; RESP 16–20; TEMP 36.5–36.8; O2SAT 97–100
--- NOTE | 2024-05-30 | ECHO_ITS ---
Patient Info Name: Cesar Martin Age: 69 years : 1955 Gender: Male Ht: 71 in Wt: 245 lbs BSA: 2.40 m2 HR: 89 bpm BP: 135 / 89 mmHg Heart Rhythm: Sinus Rhythm Technical Quality: Poor Exam Date: 05/30/2024 12:17 PM Exam Location: Echo Lab Patient Status: Inpatient Admit Date: 05/29/2024 Staff Ordering Physician: Landry Robbins DO Mine Superintendent: Sonu Wasserman RDCS Attending Provider: Juan Huizar MD Referring Physician: Rosendo SIMS; Exam Type: CA echo dop color flow w con Study Info Indications - CP Complete two-dimensional, color flow and Doppler transthoracic echocardiogram is performed with contrast to opacify the left ventricle and to improve the deliniation of the left ventricle endocardial borders. Reason for Poor Study: poor echocardiographic windows Summary 1. Definity contrast administered improved wall motion interpretation. 2. Left ventricular chamber dimension is normal. 3. Left ventricular systolic function is normal, estimated at 60-65%. 4. There is mild concentric increased left ventricular wall thickness. 5. The left ventricular diastolic function is normal. 6. E/e' 8 is minimally elevated. 7. Linear artifact in right ventricle suggestive of catheter(s), pacemaker lead(s), or ICD lead(s). 8. Linear artifact in the right atrium suggestive of catheter(s), pacemaker lead(s), or ICD lead(s). 9. No pulmonary hypertension, estimated pulmonary arterial systolic pressure is 22 mmHg. Left Ventricle E/e' 8 is minimally elevated. Left ventricular chamber dimension is normal. Left ventricular systolic function is normal, estimated at 60-65%. There is mild concentric increased left ventricular wall thickness. The left ventricular diastolic function is normal. Definity contrast administered improved wall motion interpretation. Right Ventricle Right ventricular systolic function is normal and with normal TAPSE 3.7 cm. Linear artifact in right ventricle suggestive of catheter(s), pacemaker lead(s), or ICD lead(s). Right ventricular chamber dimension is normal. Left Atria Left atrial chamber dimension is normal. Right Atria Linear artifact in the right atrium suggestive of catheter(s), pacemaker lead(s), or ICD lead(s). Right atrial chamber dimension is normal. Aortic Valve The aortic valve is trileaflet. There is no aortic valve stenosis. There is no aortic valve regurgitation. Pulmonic Valve There is no pulmonic regurgitation. Mitral Valve There is no mitral valve stenosis. There is no mitral valve regurgitation. Tricuspid Valve There is no tricuspid valve regurgitation. No pulmonary hypertension, estimated pulmonary arterial systolic pressure is 22 mmHg. Pericardium/Pleural There is no pericardial effusion. Inferior Vena Cava Normal inferior vena cava with >50% collapse upon inspiration consistent with normal right atrial pressure, 5 mmHg. Aorta The aortic root size at the sinus of Valsalva is normal. Left Ventricular Outflow Tract Name Value Normal LVOT 2D LVOT Diameter 2.18 cm LVOT Doppler LVOT Peak Gradient 2 mmHg LVOT Mean Gradient 2 mmHg LVOT VTI 15.12 cm LVOT VTI/AV VTI Ratio 0.80 LVOT Stroke Volume 56.68 ml LVOT CO 4.34 l/min LVOT CI 1.81 L/min/m2 Mitral Valve Name Value Normal MV Doppler MV Decel Person 324.63 cm/s2 MV PHT 0 s MV Area (PHT) 3.50 cm2 4.00-5.00 MV Diastolic Function MV E Peak Velocity 70.30 cm/s MV A Peak Velocity 63.58 cm/s MV E/A 1.11 MV Decel Time 0 s MV Annular TDI MV E/e' (Septal) 9.58 <=8.00 MV E/e' (Lateral) 7.63 <=8.00 MV E/e' (Average) 8.61 Tricuspid Valve Name Value Normal TV Regurgitation Doppler TR Peak Velocity 207.21 cm/s TR Peak Gradient 9 mmHg Estimated PAP/RSVP RA Pressure 5 mmHg <=5 PA Systolic Pressure 22 mmHg <36 RV Systolic Pressure 22 mmHg <36 Aortic Valve Name Value Normal AV Doppler AV Peak Velocity 98.36 cm/s AV Peak Gradient 4 mmHg AV Mean Gradient 3 mmHg AV VTI 18.96 cm AV Area (Cont Eq VTI) 2.99 cm2 >=3.00 AV Area (Cont Eq Lincoln) 3.00 cm2 AV Regurgitation 2D LVOT Area 3.75 cm2 Ventricles Name Value Normal LV Dimensions 2D/MM IVS Diastolic Thickness (2D) 1.33 cm 0.60-1.00 LVID Diastole (2D) 4.24 cm 4.20-5.80 LVIW Diastolic Thickness (2D) 1.28 cm 0.60-1.00 LVID Systole (2D) 2.89 cm 2.50-4.00 LVOT Diameter 2.18 cm LV Mass (2D Cubed) 204.33 g 88.00-224.00 LV Mass Index (2D Cubed) 0.01 g/cm2 0.00-0.01 Relative Wall Thickness (2D) 0.61 LV Fractional Shortening/Ejection Fraction 2D/MM LV Fractional Shortening (2D) 32 % 25-43 LV EF (2D Teicholz) 60 % 52-72 LV Diastolic Volume (4C MOD) 79.17 ml LV EF (4C MOD) 60 % LV Diastolic Volume (2C MOD) 78.38 ml LV EF (2C MOD) 64 % LV Diastolic Volume (BP MOD) 80.80 ml 62.00-150.00 LV Diastolic Volume Index (BP MOD) 0.03 l/m2 0.03-0.07 LV Systolic Volume (BP MOD) 30.76 ml 21.00-61.00 LV Systolic Volume Index (BP MOD) 0.01 l/m2 0.01-0.03 LV EF (BP MOD) 62 % 52-72 LV Diastolic Length (4C) 8.09 cm LV Systolic Length (4C) 6.47 cm LV Stroke Volume (4C MOD) 47.15 ml Atria Name Value Normal LA Dimensions LA Volume (4C A-L) 26.71 ml LA Volume (BP A-L) 42.04 ml RA Dimensions RA Area (4C) 12.49 cm2 <=18.00 Report Signatures
--- NOTE | 2024-05-30 | EST_ITS ---
Patient Info Name: Cesar Martin Age: 69 years : 1955 Gender: Male Ht: 70 in Wt: 240 lbs BSA: 2.36 m2 HR: 76 bpm BP: 132 / 88 mmHg Exam Date: 05/30/2024 11:07 AM Exam Location: Echo Lab Patient Status: Inpatient Admit Date: 05/29/2024 Staff Ordering Physician: Landry Robbins DO Attending Provider: Juan Huizar MD Exercise Technologist: Mignon Cr RDCS Exercise Physician: Landry Robbins DO Exam Type: CA stress rosy w NM Study Info A regadenoson stress test was performed. Summary 1. 1. Negative lexiscan stress test for ischemic ST changes by ECG criteria. 2. 2. Stable hemodynamics throughout the test. 3. 3. Nuclear scan to follow and will be reported separately. Please correlate with it. 4. 4. Patient informed of the above results. Protocol: Lexiscan Stress ECG Details Stage: REST Duration (min): 0 min : 54 sec HR (bpm): 75 SBP (mmHg): 132 DBP (mmHg): 88 Stage: REST Duration (min): 11 min : 16 sec HR (bpm): 76 SBP (mmHg): 132 DBP (mmHg): 88 Stage: STAGE 1 Duration (min): 0 min : 59 sec HR (bpm): 86 SBP (mmHg): 137 DBP (mmHg): 99 Stage: RECOVERY Duration (min): 1 min : 0 sec HR (bpm): 93 SBP (mmHg): 137 DBP (mmHg): 99 Stage: RECOVERY Duration (min): 2 min : 0 sec HR (bpm): 92 SBP (mmHg): 137 DBP (mmHg): 99 Stage: RECOVERY Duration (min): 3 min : 0 sec HR (bpm): 87 SBP (mmHg): 160 DBP (mmHg): 99 Stage: RECOVERY Duration (min): 4 min : 0 sec HR (bpm): 82 SBP (mmHg): 160 DBP (mmHg): 99 Stage: RECOVERY Duration (min): 5 min : 0 sec HR (bpm): 86 SBP (mmHg): 162 DBP (mmHg): 97 Stage: RECOVERY Duration (min): 5 min : 3 sec HR (bpm): 83 SBP (mmHg): 162 DBP (mmHg): 97 Rest HR: 76 bpm Peak HR: 95 bpm Rest Sys BP: 132 mmHg Peak Sys BP: 162 mmHg Max Pred HR: 153 bpm % Max Pred HR: 62 % Target HR: 130 bpm Max RPP: 15,390 bpm*mmHg Termination Reason: Completed protocol Cardiac Symptoms: Shortness of breath Total Time: 1 min : 0 sec Rest Stroud BP: 88 mmHg Peak Stroud BP: 97 mmHg Total Dose: 0.4 mg Resting ECG Electronic atrial pacemaker, early precordial R/S transition. Stress ECG No ST changes. Arrhythmias None. Report Signatures
--- NOTE | 2024-05-30 08:06 | P.PNCA_ITS ---
Progress Note: A&P Assessment and Plan (1) Chest pain: Code(s): R07.9 - Chest pain, unspecified Status: Acute Assessment and Plan: Probably musculoskeletal pain. First 3 sets of troponin are negative. EKG shows some T wave abnormality. Obtain lexiscan myoview stress test. Obtain echo. (2) PAF (paroxysmal atrial fibrillation): Code(s): I48.0 - Paroxysmal atrial fibrillation Status: Acute Assessment and Plan: Atrial paced rhythm. On Dofetilide and Eliquis. (3) Hyperlipidemia: Code(s): E78.5 - Hyperlipidemia, unspecified Status: Acute Assessment and Plan: On Atorvastatin. (4) Hypertension: Code(s): I10 - Essential (primary) hypertension Status: Acute Assessment and Plan: Stable. (5) Pacemaker: Code(s): Z95.0 - Presence of cardiac pacemaker Status: Acute Assessment and Plan: Biotronik pacemaker. He normally sees Dr. Parrish with [facility]. Subjective Date/time seen: 05/30/24 08:06 Interval history: He has more back pain radiating to his left side of chest that is reproducible by palpation. No Sob. Exam Const: General: cooperative, healthy appearing and comfortable Orientation/consciousness: oriented to person, oriented to place and oriented to time Resp: Auscultation: clear to auscultation bilaterally, no crackles, no rales, no rhonchi and no wheezes Cardio: Rate: regular rate Rhythm: regular rhythm Heart sounds: no murmurs Peripheral pulses: dorsalis pedis present Neuro: General: oriented to person, oriented to place and oriented to time Extrem: Right lower extremity: no edema Left lower extremity: no edema Objective Data Vital Signs Vital Signs: Vital Signs - 24 hr 05/29/24 11:49 05/29/24 15:20 05/29/24 15:20 Temperature 98.2 F Pulse Rate 102 H 76 Respiratory Rate 16 17 Blood Pressure 176/102 H 170/94 H Pulse Oximetry 98 100 98 Oxygen Delivery Room Air 05/29/24 15:19 05/29/24 15:45 05/29/24 16:01 Temperature Pulse Rate 76 76 76 Respiratory Rate 21 H 20 17 Blood Pressure 170/94 H 125/89 Pulse Oximetry 98 98 99 Oxygen Delivery 05/29/24 16:31 05/29/24 16:45 05/29/24 17:29 Temperature Pulse Rate 76 75 76 Respiratory Rate 15 15 16 Blood Pressure 137/79 131/86 Pulse Oximetry 100 99 98 Oxygen Delivery 05/29/24 18:27 05/29/24 18:30 05/29/24 20:50 Temperature 97.8 F Pulse Rate 74 75 75 Respiratory Rate 20 20 Blood Pressure 154/76 H Pulse Oximetry 98 98 Oxygen Delivery Room Air 05/29/24 20:00 05/29/24 21:46 05/29/24 22:00 Temperature 97.8 F Pulse Rate 76 86 92 Respiratory Rate 20 Blood Pressure 163/92 H Pulse Oximetry 99 Oxygen Delivery 05/29/24 21:35 05/30/24 00:25 05/30/24 00:50 Temperature 97.7 F Pulse Rate 83 92 86 Respiratory Rate 18 20 20 Blood Pressure 147/92 H Pulse Oximetry 98 99 100 Oxygen Delivery Autopap Autopap 05/30/24 00:00 05/30/24 01:35 05/30/24 02:00 Temperature Pulse Rate 95 98 95 Respiratory Rate 19 Blood Pressure Pulse Oximetry 100 Oxygen Delivery Autopap 05/30/24 04:10 05/30/24 04:00 05/30/24 04:52 Temperature 97.7 F Pulse Rate 95 101 H 87 Respiratory Rate 19 20 Blood Pressure 135/89 Pulse Oximetry 100 97 Oxygen Delivery Autopap 05/30/24 06:00 Temperature Pulse Rate 89 Respiratory Rate Blood Pressure Pulse Oximetry Oxygen Delivery Intake/Output Intake/Output: Intake & Output 05/27/24 05/28/24 05/29/24 05/30/24 23:59 23:59 23:59 23:59 Output Total 600 Balance -600 Meds/Results Medications: Active Medications Generic Name Dose Route Start Last Admin Trade Name Freq PRN Reason Stop Dose Admin Acetaminophen 650 mg 05/29/24 21:16 Acetaminophen 325 Mg Tablet PO Q6H PRN Mild Pain (1-3) or Fever Hydrocodone Bitart/Acetaminophen 1 tab 05/29/24 21:16 Hydrocodone/Acetaminophen (*Crx) 5-325 Mg Tablet PO Q6H PRN Pain Rated 4-6 Apixaban 5 mg 05/29/24 21:00 05/29/24 21:00 Apixaban 5 Mg Tablet PO 5 mg Q12HR KATHY Administration Ascorbic Acid 500 mg 05/30/24 09:00 Ascorbic Acid 500 Mg Tablet PO BID [facility] Atorvastatin Calcium 40 mg 05/30/24 09:00 Atorvastatin 40 Mg Tablet PO DAILY [facility] Diltiazem HCl 360 mg 05/29/24 21:00 05/29/24 20:59 Diltiazem Hcl Cd 180 Mg Cap.24hr PO 360 mg HS KATHY Administration Losartan Potassium 25 mg 05/29/24 21:00 05/29/24 21:25 Losartan Potassium 25 Mg Tablet PO 25 mg HS KATHY Administration Magnesium Oxide 400 mg 05/29/24 21:08 05/29/24 21:25 Magnesium Oxide 400 Mg Tablet PO 400 mg BID KATHY Administration Miscellaneous Information 1 each 05/29/24 00:01 Nonformulary Drug (Enzalutamide [Xtandi] 80 Mg Tablet)Can Patient Use From Home? XX 06/28/24 00:00 CLARIFY [facility] Morphine Sulfate 2 mg 05/29/24 21:16 Morphine Sulfate (*Crx) 2 Mg/Ml Inj IV PUSH Q4H PRN Pain Rated 7-10 Multivitamins Therapeutic 1 tablet 05/30/24 09:00 Multivitamins Therapeutic Tab (*Bkc) PO DAILY [facility] Dofetilide 250 Mcg 0 mcg 05/30/24 09:00 Take 2 Capsules Po PO 06/29/24 08:59 Q12hr (Nonformulary Q12HR [facility] Med) Non-Formulary Medication 80 mg 05/30/24 09:00 Enzalutamide [Xtandi] PO 06/29/24 08:59 DAILY [facility] Non-Formulary Medication 300 mg 05/30/24 09:00 Garlic PO 06/29/24 08:59 BID [facility] Perflutren Lipid Microsphere 0 ml 05/29/24 18:04 Perflutren Lipid Microspheres 1.5 Ml Vial Diluted To 10 Ml Total Volume IV PUSH 06/01/24 18:04 ONCE PRN adequate visualization Protocol Spironolactone 25 mg 05/30/24 09:00 Spironolactone 25 Mg Tablet PO DAILY [facility] Vitamin D 1,000 units 05/30/24 09:00 Cholecalciferol 1,000 Units Tablet PO DAILY [facility] Radiology Results: ITS Impressions Chest X-Ray 05/29/24 12:32 IMPRESSION: No acute cardiopulmonary pathology. Labs Labs: Laboratory Results - last 24 hr 05/29/24 05/29/24 05/29/24 12:03 15:33 18:27 WBC 6.5 RBC 4.80 Hgb 16.0 Hct 48.4 MCV 100.8 H MCH 33.3 MCHC 33.1 RDW 13.6 Plt Count 186 MPV 9.4 Immature Gran % (Auto) 0.6 H Neut % (Auto) 63.9 Lymph % (Auto) 21.3 Pickett % (Auto) 11.2 H Eos % (Auto) 1.8 Baso % (Auto) 1.2 Lymph # (Auto) 1.39 Pickett # (Auto) 0.7 H Eos # (Auto) 0.1 Baso # (Auto) 0.1 Abs Immat Gran (auto) 0.04 H Absolute Neuts (auto) 4.2 Absolute Nucleated RBC 0.000 Nucleated RBC % 0.0 PT 15.4 H INR 1.2 APTT 26.8 D-Dimer 0.39 Sodium 138 Potassium 4.0 Chloride 104 Carbon Dioxide 26 Anion Gap 8 BUN 17 Creatinine 0.90 Estim Creat Clear Calc 90 Estimated GFR > 60 Glucose 101 Calcium 9.9 Total Bilirubin 0.8 AST 26 ALT 19 Alkaline Phosphatase 64 Troponin I < 0.012 0.015 D < 0.012 D Total Protein 9.0 H Albumin 4.8 Lipase 47 05/29/24 22:45 WBC RBC Hgb Hct MCV MCH MCHC RDW Plt Count MPV Immature Gran % (Auto) Neut % (Auto) Lymph % (Auto) Pickett % (Auto) Eos % (Auto) Baso % (Auto) Lymph # (Auto) Pickett # (Auto) Eos # (Auto) Baso # (Auto) Abs Immat Gran (auto) Absolute Neuts (auto) Absolute Nucleated RBC Nucleated RBC % PT INR APTT D-Dimer Sodium Potassium Chloride Carbon Dioxide Anion Gap BUN Creatinine Estim Creat Clear Calc Estimated GFR Glucose Calcium Total Bilirubin AST ALT Alkaline Phosphatase Troponin I < 0.012 Total Protein Albumin Lipase
[2024-05-30] MEDS: MULTIVITAMINS THERAPEUTIC TAB (*BKC) 1 TABLET PO (09:01)
[2024-05-30] MEDS: CHOLECALCIFEROL 1,000 UNITS TABLET 1000 UNITS PO (09:01)
[2024-05-30] MEDS: APIXABAN 5 MG TABLET PO (09:01)
[2024-05-30] MEDS: ATORVASTATIN 40 MG TABLET PO (09:01)
[2024-05-30] MEDS: SPIRONOLACTONE 25 MG TABLET PO (09:02)
[2024-05-30] MEDS: MAGNESIUM OXIDE 400 MG TABLET PO (09:02)
[2024-05-30] MEDS: ASCORBIC ACID 500 MG TABLET PO (09:02)
[2024-05-30] MEDS: DOFETILIDE 250 MCG PO (09:03)
[2024-05-30] MEDS: HYDROcodone/acetaminophen (*CRX) 5-325 MG TABLET 1 TAB PO (09:10)
--- NOTE | 2024-05-30 09:55 | PC.NURSE ---
Pt to nuclear medicine via wheelchair for stress test
--- NOTE | 2024-05-30 12:06 | PC.NURSE ---
Pt returned from stress lab via wheelchair. No issues noted
[2024-05-30] MEDS: PERFLUTREN LIPID MICROSPHERES 1.5 ML VIAL DILUTED TO 10 ML TOTAL VOLUME IV PUSH (12:30)
--- NOTE | 2024-05-30 12:56 | IVDEFINITY ---
Prior to administration of IV Definity the patient was educated on the risks and benefits of the imaging enhancing agent including potential adverse side effects. The patient verbalized understanding. Allergies were verified. No exclusion criteria were identified and at least one of the following inclusion criteria were met: 1) physician request, 2) patient technically difficult to image (per the [place] [employer] guidelines of two or more segments not discernable within the apical view), or 3) questionable left ventricular function. ?
--- NOTE | 2024-05-30 14:03 | PM.DS ---
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 The patient provides the following history. He has chronic low back pain however over the last 3 days he has been experiencing pain in the left mid back just below the scapula. It feels like a severe spasm just like his low back pain. It occasionally radiates around the side into the left anterior chest. The pain is worse with movement and palpation. He denies syncope, near syncope, exertional chest pain (although he does not exert himself much due to his chronic back pain), palpitations, significant shortness of breath, nausea, vomiting, and sweats. He has not done any recent heavy lifting or strenuous activity. No falls. In the ED: Vital signs were stable on arrival. CMP and CBC were pretty unremarkable. Initial troponin was less than 0.012. Chest x-ray showed no acute cardiopulmonary pathology. EKG showed electronic atrial pacemaker with moderate T-wave abnormalities, consider anterior/inferior ischemia. He was given aspirin 324 mg, morphine 4 mg IV, and was started on transdermal nitroglycerin. He is being admitted in this setting for close monitoring and Cardiology consultation. Valium seemed to help his pain the most. Patient has left-sided chest tenderness on palpation which denotes most likely noncardiac etiology. However stress test and echo well unremarkable. EF was 60-65% no regional wall motion abnormality. Cardiology evaluated the patient note that AFib: The stress test were negative she, discharge. He also suspects this is noncardiac pain. Patient will continue p.r.n. pain medication and his other home medications. Follow-up with primary care in 3-5 days, continue follow-up with Cardiology as instructed and follow up with Oncology as scheduled. Time Spent with Patient Time attestation: Total time spent providing and/or coordinating discharge services: DS: Data Data Completed and Pending Labs on day of discharge: Labs from last 24 hours 05/29/24 05/29/24 05/29/24 22:45 18:27 15:33 D-Dimer Troponin I < 0.012 < 0.012 D 0.015 D 05/29/24 12:03 D-Dimer 0.39 Troponin I Discharge Plan Discharge Attending physician on discharge: Fito Cunningham Consulting providers: Landry Robbins Discharging Clinician: Fito Cunningham Anticipated Discharge Date/Time: 05/30/24 14:01 Patient Disposition: Home, Self-Care Activity: as tolerated Diet: as tolerated Patient Instructions: Antibiotic Form Stand Alone Forms: General Discharge Information Follow-up/Referrals: Landry Robbins DO [Physician] - (Follow-up with cardiology as instructed.) Deborah Clark DO [Physician] - (Follow-up with PCP in 3-5 days.) Discharge Medications: Continued dofetilide 500 mcg capsule 500 mcg PO DAILY Eliquis 5 mg tablet 5 mg PO BID magnesium oxide 400 mg (241.3 mg magnesium) tablet 400 mg PO DAILY Xtandi 80 mg tablet 80 mg PO DAILY losartan 50 mg tablet 25 mg PO DAILY ascorbate calcium (vitamin C) 500 mg tablet 500 mg PO BID cholecalciferol (vitamin D3) 25 mcg (1,000 unit) capsule 25 mcg PO DAILY garlic 300 mg capsule 300 mg PO BID multivitamin Tablet 1 tablet PO DAILY atorvastatin 20 mg tablet 40 mg PO DAILY diltiazem HCl 360 mg capsule,extended release 24hr 360 mg PO HS spironolactone 25 mg tablet 25 mg PO DAILY Date of admission: 05/29/24 16:50 Primary Care Provider: UNKNOWN,DOCTOR Admitting Provider: Juan Huizar Attending physician on admission: Juan Huizar Condition: Stable
== END 2024-05-30 15:50 | disposition home or self-care (01) ==
LOC: ANHED 16:56 → ANHIMU 17:53
PROVIDERS: Admitting Provider General Practice; Emergency Provider Emergency Medicine; Visit Provider Internal Medicine
DX: R07.89 Other chest pain (principal); M54.50 Low back pain, unspecified; G89.29 Other chronic pain; I48.0 Paroxysmal atrial fibrillation; I10 Essential (primary) hypertension; E78.5 Hyperlipidemia, unspecified; C61 Malignant neoplasm of prostate; G47.33 Obstructive sleep apnea (adult) (pediatric); E66.9 Obesity, unspecified; Z68.35 Body mass index [BMI] 35.0-35.9, adult; B19.20 Unspecified viral hepatitis C without hepatic coma; Z79.01 Long term (current) use of anticoagulants; Z79.899 Other long term (current) drug therapy; Z95.0 Presence of cardiac pacemaker; Z87.891 Personal history of nicotine dependence; Z98.49 Cataract extraction status, unspecified eye; Z86.79 Personal history of other diseases of the circulatory system
CPT/HCPCS: 36415; 71046; 78452; 80053; 83690; 84484; 85025; 85380; 85610; 85730; 93005; 93017; 93306; 96374; 96375; 99285; A9270; A9502; G0378; J2270; J2785; J3360; Q9957